=== PATIENT | female | born 1970 | race Caucasian/White ===

== ENCOUNTER 2018-06-15 05:23 | Inpatient (IN) ==
[2018-06-15] MEDS ORDERED: Chlorhexidine Gluconate 2% 1 Pack (2 Cloths) TOPICAL ONE (05:56)
[2018-06-15] MEDS ORDERED: Metoprolol Tartrate 25 MG Tablet PO ONE (05:56)
[2018-06-15] MEDS ORDERED: Sodium Chlor 0.9% Inj 500 ML IV.SIG SCH (06:00)
[2018-06-15] MEDS ORDERED: ceFAZolin 2 GM Premix Inj 2 GM/50 ML PIGGYBACK IV.SIG PRN (06:00)
[2018-06-15] MEDS ORDERED: Scopalamine 1.5 MG Patch T-DERMAL PRN (06:05)
[2018-06-15] MEDS ORDERED: fentaNYL Citrate Inj 100 MCG/2 ML Ampul ONE ×2 (06:59→10:17)
[2018-06-15] MEDS ORDERED: Bupivacaine/Epinephrine Inj 0.25% 50 ML Vial ONE (06:59)
[2018-06-15] MEDS ORDERED: Neostigmine Inj 5 MG/5 ML Syringe IV.PUSH ONE (07:30)
[2018-06-15] MEDS ORDERED: Succinylcholine Inj 100 MG/5 ML Syringe IV.PUSH ONE (07:30)
[2018-06-15] MEDS ORDERED: Glycopyrrolate Inj 1 MG/5 ML Syringe IV.PUSH ONE (07:30)
[2018-06-15] MEDS ORDERED: Phenylephrine/NS 1000 MCG/10ML Syringe IV.PUSH ONE (07:30)
[2018-06-15] MEDS ORDERED: Lidocaine PF 1% Inj 5 ML Syringe INFILTRATN ONE (07:30)
[2018-06-15] MEDS ORDERED: Acetaminophen-HYDROcodone 325/7.5 Liq 15 ML UDC PO PRN (10:28)
[2018-06-15] MEDS ORDERED: Post-op Orders (for Pharmacy) OTHER STA (10:28)
[2018-06-15] MEDS ORDERED: diphenhydrAMINE HCl 12.5 MG/5 ML Elixir UDC PO PRN (10:28)
[2018-06-15] MEDS ORDERED: Naloxone Inj 0.4 MG/ML Vial IV.PUSH PRN (10:43)
[2018-06-15] MEDS ORDERED: *morphine SULFATE 10 MG/ML PERIprocedure ONLY ONE (10:44)
--- NOTE | 2018-06-15 10:46 | P.OP ---
- Preoperative Diagnosis (1) Morbid obesity with BMI of 40.0-44.9, adult - Postoperative Diagnosis (1) Morbid obesity with BMI of 40.0-44.9, adult Date of procedure: 06/15/18 Procedure: lap rygb Anesthesia: GETA Surgeon: Thiago Virgen MD Estimated blood loss (mL): 5 Pathology: none sent Operation and Findings: no leak with methylene blue
[2018-06-15] MEDS ORDERED: KCL 20 mEq/D5W/NaCl 0.45% Inj 1,000 ML ONE (11:03)
[2018-06-15] MEDS ORDERED: Morphine Inj 30 MG/30 ML PCA.VIAL PCA ONE (11:03)
[2018-06-15] MEDS: KCL 20 mEq/D5W/NaCl 0.45% Inj 1,000 ML IV.CONT SCH (11:17)
[2018-06-15] MEDS: Morphine Inj 30 MG/30 ML PCA.VIAL PCA PRN (11:18)
[2018-06-15] MEDS: Enoxaparin Inj 40 MG/0.4 ML Syringe SQ SCH (17:40)
--- NOTE | 2018-06-15 23:02 | MP ---
cc: Thiago Virgen MD DATE OF OPERATION: 06/15/2018 PREOPERATIVE DIAGNOSIS: Morbid obesity, obstructive sleep apnea, gastroparesis, diabetes, BMI of 41. POSTOPERATIVE DIAGNOSES: Morbid obesity, obstructive sleep apnea, gastroparesis, diabetes, BMI of 41. PROCEDURE PERFORMED: Laparoscopic Marcus-en-Y gastric bypass with 40 cm Marcus limb, 100 cm biliopancreatic limb. SURGEON: Thiago Virgen MD WORSHIP PASTOR: Doroteo Torres MD. Dr. Doroteo Torres needed due to complexity of laparoscopic case. Dr. Torres assisted with camera control and retraction. ANESTHESIA: GETA. IV FLUIDS: See anesthesia sheet. ESTIMATED BLOOD LOSS: 10 mL. DRAINS: None. COMPLICATIONS: None. WOUND CLASSIFICATION: Clean/contaminated. FINDINGS: No leak with methylene blue. Good hemostasis. SPECIMENS: None. INDICATIONS FOR PROCEDURE: The patient is a 40-year-old female who presented with morbid obesity, multiple attempts at weight loss without success. The patient with a BMI of 41, multiple comorbidities including diabetes, sleep apnea, gastroparesis. The patient was considering gastric sleeve; however, due to gastroparesis, is better a gastric bypass candidate. DETAILS OF PROCEDURE: The patient was taken to the operating suite, placed in supine position. She was prepped and draped in the usual sterile fashion, after induction of general endotracheal anesthesia. Brief timeout was done, stating correct patient, procedure, surgical site, and we were all in agreement with this. Attention was first directed to 18 cm from the xiphoid. Local anesthetic injected, Marcaine with epinephrine. A 5 mm incision was made just off the midline and left of the midline. A 5 mm Optiview port was placed under direct visualization introduced in the abdomen. Insufflation to 15 mm pneumoperitoneum was obtained. On visual inspection, no evidence of injury. Several other trocars were placed, including a right upper quadrant 5 mm liver retractor trocar, 12 mm right lower quadrant retractor 12 mm left lower quadrant retractor, a 5 mm left lateral port placement. Prior to all port placements, local anesthetic was injected. All ports introduced under direct vision. Next, attention was directed to the abdomen where the omentum was obtained. Harmonic scalpel was used to transect the omentum, starting at the transverse colon at the hepatic flexure up to near the transverse colon. The omentum was split, creating a path for the Marcus limb. Next, the ligament of teres was identified. The bowel was walked 40 cm distal to this and the bowel was divided using the Endo-JOON stapler with a SeamGuard blue load. A clip was placed to [place] the proximal biliopancreatic limb. Distal limb was then further walked another distance of 100 cm distally. Enterotomies were made to create, on the antimesenteric borders of the biliopancreatic limb, the previous transected portion of the OM. This was done in order to fashion a jejunojejunostomy. Another Endo-JOON stapler was used to create a [id number]-npy-[id number] layer. This was done in a [id number]-[id number] stapling manner. Next, the common enterotomy was grasped and another Endo-JOON stapler was used to approximate the conjoined enterotomy. Small clips were placed across the staple line for hemostasis. Next, a 2-0 silk was used to the small redundant portion with a single suture and a Lapra-Ty. Once we were finished with this, the patient was placed in reverse Trendelenburg and left side up. Nati-Flex retractor was placed. Left lobe of the liver was retracted. Angle of His was taken down bluntly with the Harmonic scalpel. A 5 mm camera port was at the midline of the umbilicus. Approximately 5 cm from the GE junction on the lesser curvature, the lesser sac was entered using Harmonic scalpel and blunt dissection. A linear Endo-JOON stapler was used to transect horizontally with a blue staple load. We confirmed no NG tubes or esophageal probes were in place. Further, the pouch was created by heading cephalad firing 2 more Endo-JOON [place] near the angle of His, dividing the stomach completely. Next, the gastroenterostomy was created using hook electrocautery. Enterotomy was also done in the Marcus limb jejunal side as well. Endo-JOON stapler was used to staple approximate the jejunal limb, creating the gastric pouch approximately 2.5 cm. Next, a 2-0 Polysorb was used in a running fashion to approximate the enterotomies. [place] through, the suture was cut and an 18-Czech OG tube was advanced past anastomosis. The defect was closed with a running 2-0 Polysorb Endosuture. These two were tied, creating a single layer. Single layer was tested with methylene blue without evidence of leak. Next, a second layer was used to run with Lapra-Ty and Endosuture to reapproximate and reinforce the gastrojejunostomy. Next, Evicel was placed at the gastrojejunostomy and jejunojejunostomy on all staple lines. Next, the defect was closed, preventing any internal hernias. This was done with a permanent 2-0 Surgidac. Next, all port sites were closed using [address] Torres assisted with camera control and retraction. Following this, pneumoperitoneum was removed. All trocars were removed, as well. The G-tube was removed. The subcuticular suture was done at all port sites, a 4-0 Monocryl. Sterile dressing placed. The patient tolerated the procedure well with no intraoperative complications. All lap and instrument counts were correct at the end of the procedure. The patient was extubated and taken stable to the PACU. MD SRAVANI Corona/cristina , 09:37 PM , 09:48 PM SCAR
[2018-06-16] MEDS: KCL 20 mEq/D5W/NaCl 0.45% Inj 1,000 ML IV.CONT SCH ×3 (00:58→13:11)
[2018-06-16] MEDS: Morphine Inj 30 MG/30 ML PCA.VIAL PCA PRN (04:09)
[2018-06-16 07:05] LABS: Baso % (Auto) 0.1 % (0.0-2.0); Hematocrit 37.5 % (35.0-46.0); Hemoglobin 12.4 gm/dL (11.6-15.3); Lymph # (Auto) 2.9 th/mm3 (1.0-4.8); Lymph % (Auto) 19.8 % (9.0-44.0); Mean Corpuscular HGB Conc 33.1 % (32.0-36.0); Mean Corpuscular Hemoglobin 29.4 pg (27.0-34.0); Mean Corpuscular Volume 88.9 fL (80.0-100.0); Mean Platelet Volume 7.8 fL (7.0-11.0); Mono # (Auto) 1.3 th/mm3 (0.0-0.9); Neut # (Auto) 10.4 th/mm3 (1.8-7.7); Neut % (Auto) 71.1 % (16.0-70.0); Platelet Count 237 th/mm3 (150-450); Red Blood Count 4.22 mil/mm3 (4.00-5.30); Red Cell Distribution Width 14.3 % (11.6-17.2); White Blood Count 14.7 th/mm3 (4.0-11.0)
[2018-06-16 07:09] LABS: Calcium 8.5 mg/dL (8.5-10.1); Potassium 4.1 meq/L (3.5-5.1)
--- NOTE | 2018-06-16 13:12 | P.PNGS ---
Subjective Patient reports: no new complaints, feels better, no bowel movement (tolerating liquids 60cc/30 min) Physical Exam Vital signs: Vital Signs 06/15/18 14:00 06/15/18 14:30 06/15/18 15:58 Temperature 97.6 F 98.0 F Pulse Rate 95 H 92 H 104 H Respiratory Rate 16 16 16 Blood Pressure 118/54 L 121/58 L 116/58 L Pulse Oximetry 97 94 L 93 L 06/15/18 20:00 06/16/18 00:00 06/16/18 04:00 Temperature 98.3 F 97.4 F L 97.4 F L Pulse Rate 97 H 90 86 Respiratory Rate 18 18 17 Blood Pressure 104/57 L 100/55 L 107/57 L Pulse Oximetry 95 95 94 L 06/16/18 07:59 06/16/18 08:00 06/16/18 12:00 Temperature 97.7 F 97.5 F L Pulse Rate 81 85 Respiratory Rate 16 16 16 Blood Pressure 108/57 L 125/58 L Pulse Oximetry 93 L 93 L 94 L Intake & Output 06/15/18 06/16/18 06/16/18 18:59 06:59 18:59 Intake Total 2450 / 2450 580 / 580 1100 / 1100 Output Total 10 / 10 Balance 2440 / 2440 580 / 580 1100 / 1100 Weight 116.1 kg Intake: IV 2350 / 2350 100 / 100 1100 / 1100 D5W/1/2NS + KCL 20 mEq Inj 1, 1000 / 1000 1000 / 1000 000 ML @ 125 mls/hr IV.CONT . Q8H SUKHDEV Rx#:[id number] Ofirmev Inj 1,000 mg In 100 ml 100 / 100 @ 400 mls/hr IV.SIG PUMP REBUILDER PRN Rx#:[id number] LR 1000 mL Inj 1,000 ML @ 30 1000 / 1000 mls/hr IV.SIG .Q24H SUKHDEV Rx#: [id number] Ancef 2 GM Premix Inj 2 gm In 50 / 50 50 ml @ 100 mls/hr IV.SIG PUMP REBUILDER PRN Rx#:[id number] Ancef Inj 1,000 MG In NS Inj 100 / 100 100 / 100 100 / 100 100 ML @ 200 mls/hr IV.SIG Q8H SUKHDEV Rx#:[id number] Flagyl 500 MG Inj 100 ML @ 100 100 / 100 mls/hr IV.SIG PUMP REBUILDER PRN Rx#: [id number] Oral 480 / 480 Anesthesia Amount 100 / 100 Output: Estimated Blood Loss Other: # Voids 2 Date of Last Bowel Movement 06/12/18 - Constitutional no acute distress - Routine Respiratory Exam Present: CTA bilaterally - Routine Cardiovascular Exam Present: RRR - Routine Abdominal Exam Present: soft (incisional tenderness c/d/i) Assessment and Plan - Plan POD 1 Lap gastric bypass doing well PLAN bariatric diet IS pain control dvt ppx oob ambulate d/c home
[2018-06-16] MEDS: Enoxaparin Inj 40 MG/0.4 ML Syringe SQ SCH (13:13)
== END 2018-06-16 16:40 | disposition home or self-care (01) ==
LOC: HSDI 05:23 → N07 14:52
PROVIDERS: ADMIT Surgery; ATTEND Surgery